=== PATIENT | male | born 1990 | race Caucasian/White ===

== ENCOUNTER 2021-07-08 08:33 | Emergency (ER) | payer OTHER ==
[~2021-07-08] VITALS: Ht 182.9 cm; Wt 88.0 kg
[2021-07-08 08:40] VITALS: BP 142/95
[2021-07-08] MEDS ORDERED: KETOROLAC 15 MG/ML VIAL. IVP ONE (08:45)
[2021-07-08] MEDS ORDERED: FAMOTIDINE 20 MG/2 ML VIAL IVP ONE (08:45)
[2021-07-08] MEDS ORDERED: IV NORMAL SALINE 1,000ML 1,000 ML IV SCH (08:45)
[2021-07-08] MEDS ORDERED: ONDANSETRON PF 4 MG/2 ML VIAL. IVP ONE (08:45)
[2021-07-08] MEDS ORDERED: IOHEXOL 300 MG/ML 75 ML VIAL. IV ONE (09:00)
--- NOTE | 2021-07-08 09:08 | PHYS DOC ---
Past History Past Medical History: No Pertinent History Past Surgical History: Other Additional Past Surgical Histo: prk Smoking: Quit Greater Than 1 Year Alcohol Use: Occasionally Drug Use: None General Adult EDM: Chief Complaint: ABDOMINAL PAIN HPI: HPI: 31-year-old male who presents to the ER with abdominal pain and nausea starting yesterday at 10 PM while he was watching TV. At first he thought he ate somethi ng that "did not agree" with him but since his friends had the same food and they did not get sick. He tried vomiting and having a bowel movement both of which didn't relieve his symptoms. This morning he woke up and pain was still the same if not worse prompting him to go to an urgent care who referred him to the ER. Pain is a sharp, 7/10 pain that is worse with movement that started in the periumbilical region and migrated slightly to the right lower quadrant before moving back to the periumbilical region. Denies having pain like this before. Reports mild diaphoresis, nausea, and fatigue. Reports he last ate at 1800 last night. Denies known exposure to COVID-19. Reports received COVID vaccinations with [employer] x 2. Review of Systems: Review of Systems: Constitutional: Denies fever or chills Eyes: Denies redness or eye pain HENT: Denies nasal congestion or sore throat Respiratory: Denies cough or shortness of breath Cardiovascular: Denies chest pain or palpitations GI: Reports radiating abdominal pain and nausea. : Denies dysuria or hematuria Musculoskeletal: Denies back pain or joint pain Integument: Denies rash or skin lesions, nausea Neurologic: Endorses fatigue. Denies headache, focal weakness or sensory changes Complete systems were reviewed and found to be within normal limits, except as documented in this note. Current Medications: Current Meds: Current Medications Medications (Trade) Dose Ordered Sig/Jaime Start Time Stop Time Status Last Admin Dose Admin Famotidine (Pepcid Vial) 20 mg 1X ONCE 07/08/21 08:45 07/08/21 08:46 UNV Iohexol (Omnipaque 300 Mg/ml) 75 ml 1X ONCE 07/08/21 09:00 07/08/21 09:01 UNV Ketorolac Tromethamine (Toradol 15mg Vial) 15 mg 1X ONCE 07/08/21 08:45 3/20/22 08:46 UNV Ondansetron HCl (Zofran) 4 mg 1X ONCE 07/08/21 08:45 07/08/21 08:46 UNV Sodium Chloride 1,000 ml @ 1,000 mls/hr Q1H 07/08/21 08:45 07/08/21 09:44 UNV Allergies: Allergies: Allergies Coded Allergies Type Severity Reaction Last Updated Verified No Known Drug Allergies 07/08/21 No Physical Exam: PE: Constitutional: Well developed, well nourished, no acute distress, non-toxic appearance, appears uncomfortable. HENT: Normocephalic, atraumatic Eyes: Conjunctiva normal, no discharge Neck: Normal range of motion, no tenderness, supple Lungs & Thorax: No respiratory distress, equal chest rise and fall Abdomen: Tender to palpation to periumbilical and RLQ region with voluntary guarding. Positive McBurney's point, positive heel strike. Skin: Warm, dry, no erythema, no rash. Back: No tenderness, no CVA tenderness Extremities: No tenderness, ROM intact, no edema Neurologic: Alert and oriented X 3, no focal deficits noted Psychologic: Affect normal, judgment normal Current Patient Data: Vital Signs: Vital Signs Date Time Temp Pulse Resp B/P (MAP) Pulse Ox O2 Delivery O2 Flow Rate FiO2 07/08/21 08:40 100.8 83 20 142/95 (111) 99 Room Air EKG: EKG: [] Radiology/Procedures: Radiology/Procedures: PROCEDURE: CT ABD PELV W/ IV CONTRST ONLY EXAMINATION: CT abdomen and pelvis with IV contrast. INDICATION:31 years, Male, right lower quadrant abdominal pain. TECHNIQUE: Axial CT images of the abdomen and pelvis were obtained. Coronal and sagittal reformatted performed. COMPARISON: None. Exposure: One or more of the following individualized dose reduction techniques were utilized for this examination: 1. Automated exposure control 2. Adjustment of the mA and/or kV according to patient size 3. Use of iterative reconstruction technique. FINDINGS: LOWER CHEST: Unremarkable. ABDOMEN/PELVIS: Distended appendix with hyperenhancing mucosa and periappendicular fat stranding. No loculated fluid collection to suggest abscess. No extraluminal gas to suggest perforation. No bowel dilation. Liver, gallbladder, biliary ducts, spleen, pancreas, adrenal glands and kidneys are normal. No lymphadenopathy. Patent abdominal vasculatures. No pneumoperitoneum or ascites. Unremarkable urinary bladder and prostate. MUSCULOSKELETAL STRUCTURES: No acute osseous process. Small fat-containing umbilical hernia. IMPRESSION: Acute uncomplicated appendicitis. Electronically signed by: Jennifer Osorio MD (07/08/2021 9:15 AM) [facility] Heart Score: C/O Chest Pain: N/A Course & Med Decision Making: Course & Med Decision Making Pertinent Labs and Imaging studies reviewed. (See chart for details) Patient presents with periumbilical pain with migration to right lower quadrant with associated nausea. Patient did vomit last night. Reports last p.o. at 1800 last night. Concern for acute appendicitis. Afebrile. Pain/nausea addressed. IV fluid hydration given. CT abdomen/pelvis with signs of acute appendicitis without perforation or abscess. Labs obtained and posted to chart. WBC elevated. Rapid COVID positive. Patient does report [employer] vaccinations x 2. Discussed case with Dr. Craven (General Surgery) at [facility] who is in agreement with transfer for surgical evaluation and treatment. Discussed with Dr. Jiang (hospitalist) who is in agreement with transfer for admission to [facility]. Discussed findings and plan with patient, who acknowledges understanding and agreement. COVID-19 CRITERIA: The patient was evaluated during the global COVID-19 pandemic, and that diagnosis was suspected/considered upon their initial presentation. Their evaluation, treatment and testing was consistent with current guidelines for patients who present with complaints or symptoms that may be related to COVID-19. Lloyd Disclaimer: Lloyd Disclaimer: This electronic medical record was generated, in whole or in part, using a voice recognition dictation system. Departure Departure: Impression: Primary Impression: Acute appendicitis Qualified Codes: K35.30 - Acute appendicitis with localized peritonitis, without perforation or gangrene Additional Impression: COVID-19 Disposition: 02 SHORT TERM HOSPITAL Condition: STABLE Referrals: PCP,NO (PCP) Critical Care Time Critical care time was 30 minutes which includes time at bedside, spent in discussion of patient's care with specialists and/or family members, with interpretation of laboratory and/or radiological studies and is exclusive of procedures. COVID-19 Assessment COVID-19 Patient Risks: Age 65 or older: No Sign of co-morbidity: No Exp to person + for COVID: No Exp to PUI: No Travel from affected area: No Lower respiratory symptoms: No Fever: No Other: Yes PPE Use: Full PPE with N95 mask or PAPR: Yes DASHA BELL DO Jul 08, 2021 09:08
--- NOTE | 2021-07-08 09:17 | RAD ---
EXAMINATION: CT abdomen and pelvis with IV contrast. INDICATION:31 years, Male, right lower quadrant abdominal pain. TECHNIQUE: Axial CT images of the abdomen and pelvis were obtained. Coronal and sagittal reformatted performed. COMPARISON: None. Exposure: One or more of the following individualized dose reduction techniques were utilized for thi s examination: 1. Automated exposure control 2. Adjustment of the mA and/or kV according to patient size 3. Use of iterative reconstruction technique. FINDINGS: LOWER CHEST: Unremarkable. ABDOMEN/PELVIS: Distended appendix with hyperenhancing mucosa and periappendicular fat stranding. No loculated fluid collection to suggest abscess. No extraluminal gas to suggest perforation. No bowel dilation. Liver, gallbladder, biliary ducts, spleen, pancreas, adrenal glands and kidneys are normal. No lympha denopathy. Patent abdominal vasculatures. No pneumoperitoneum or ascites. Unremarkable urinary bladde r and prostate. MUSCULOSKELETAL STRUCTURES: No acute osseous process. Small fat-containing umbilical hernia. IMPRESSION: Acute uncomplicated appendicitis. Electronically signed by: Jennifer Osorio MD (07/08/2021 9:15 AM) [facility]
[2021-07-08 09:37] LABS: BASO # 0.1 x10^3/uL (0.0-0.2); BASO % 0 % (0-3); EOS % 0 % (0-3); HEMATOCRIT 46.4 % (39.0-53.0); HEMOGLOBIN 16.1 g/dL (13.0-17.5); LYMPH # 0.9 x10^3/uL (1.0-4.8); LYMPH % 5 % (24-48); MEAN CORPUSCULAR HEMOGLOBIN 32 pg (25-35); MEAN CORPUSCULAR HGB CONC 35 g/dL (31-37); MEAN CORPUSCULAR VOLUME 92 fL (79-100); MONO # 1.7 x10^3/uL (0.0-1.1); MONO % 9 % (0-9); NEUT # 16.7 x10^3uL (1.8-7.7); NEUT % 86 % (31-73); PLATELET COUNT 244 x10^3/uL (140-400); RED BLOOD COUNT 5.05 x10^6/uL (4.30-5.70); RED CELL DISTRIBUTION WIDTH 12.5 % (11.5-14.5); WHITE BLOOD COUNT 19.3 x10^3/uL (4.0-11.0)
[2021-07-08 09:40] LABS: CALCIUM 8.9 mg/dL (8.5-10.1); GFR 88.3; POTASSIUM 4.3 mmol/L (3.5-5.1)
[2021-07-08 09:46] LABS: ALBUMIN 4.2 g/dL (3.4-5.0); ALBUMIN/GLOBULIN RATIO 1.5 (1.0-1.7); MAGNESIUM 1.7 mg/dL (1.8-2.4); TOTAL BILIRUBIN 1.4 mg/dL (0.2-1.0)
[2021-07-08 15:57] LABS: % ATYL 1 % (0-0); % BANDS 3 % (0-9); % LYMPHS 7 % (24-48); % MONOS 5 % (0-10); % SEGS 84 % (35-66); PLT ESTIMATE ADEQUATE (ADEQUATE)
== END 2021-07-08 10:13 | disposition short-term general hospital (02) ==
LOC: ER 08:33
DX: U07.1 COVID-19 (principal); K35.30 Acute appendicitis with localized peritonitis, without perforation or gangrene; Z87.891 Personal history of nicotine dependence
CPT/HCPCS: 36415; 74177; 80053; 83690; 83735; 85007; 85025; 87426; 96361; 96374; 96375; 99291; J1885; J2405; J3010; J3490; J7030; Q9967